=== PATIENT | female | born 1950 | race Caucasian/White ===

== ENCOUNTER 2017-04-29 21:38 | Emergency (ER) | payer MEDICARE, MEDICAID, OTHER ==
[~2017-04-29] VITALS: Ht 172.7 cm; Wt 85.0 kg
[~2017-04-29 21:38] MED LIST: ATOR20TA15 PO; CALC0.25 PO; CLON1 PO; DULO1CAP2 PO; GABA300C5 PO; LEVO100T5 PO; LISI-515 PO
[2017-04-29 21:44] VITALS: BP 139/76; PULSE 51; RESP 16; TEMP 97.7; O2SAT 99
--- NOTE | 2017-04-29 22:17 | PD ---
Physical Exam Time Seen by Provider: 22:16 Narrative 66 y/o female here for evaluation of a cat scratch to the face which occurred when her cat scurried across her while she was taking a nap. Vital signs reviewed. Seen at triage desk. Awaiting bed placement. Data Data Last Documented VS Vital Signs Date Time Temp Pulse Resp B/P Pulse Ox O2 Delivery O2 Flow Rate FiO2 04/29/17 21:44 97.7 51 16 139/76 99 Room Air [facility] Medical Record Reviewed: Yes Supervised Visit with DIONNA: Hayden Foster Apr 29, 2017 22:17
--- NOTE | 2017-04-29 23:53 | PD ---
HPI Chief Complaint: Laceration/Skin Injury Time Seen by Provider: 23:48 Travel History International Travel<30 days: No Contact w/Intl Traveler<30days: No Traveled to known affect area: No History of Present Illness HPI Patient comes in for evaluation scratch to her left forehead that occurred shortly prior to arrival. Patient states that she was sleeping and she thinks her cat was trying to wake her up. She believes when this occurred it had accidentally scratched on her forehead. Patient reports her tetanus shot is not up-to-date. Patient applied a cool compress prior to coming department. Denies doing anything else for this. Denies anything making it better or worse. Denies any pain with this. PFSH Past Medical History Arthritis: Yes Asthma: Yes Depression: Yes Cancer: Yes (THYROID) Cardiovascular Problems: Yes (htn) High Cholesterol: Yes Diabetes: No Diminished Hearing: No Diverticulitis: Yes Endocrine: No Fibromyalgia: Yes Gastrointestinal Disorders: Yes (DUODENAL AND ESOPHAGEAL EROSIONS) GERD: Yes Glaucoma: No Hepatitis: No Hiatal Hernia: No Hypertension: Yes (PVD) Immune Disorder: Yes (FIBROMYALGIA) Medical other: Yes (GERD) Musculoskeletal: Yes (OSTEOPOROSIS) Neurologic: Yes (FIBROMYALGIA) Psychiatric: Yes Respiratory: Yes (ASTHMA) Thyroid Disease: Yes Past Surgical History Abdominal Surgery: Yes (ABDOMINAL HERNIAS) AICD: No Appendectomy: Yes Body Medical Devices: hardware in neck Cholecystectomy: Yes Ear Surgery: No Endocrine Surgery: No Eye Surgery: No Gynecologic Surgery: Yes (OVARY REMOVAL) Hysterectomy: Yes Joint Replacement: No Neurologic Surgery: Yes (CERVICAL FUSION) Pacemaker: No Tonsillectomy: Yes Other Surgery: Yes (left side of body reconstructed) Social History Alcohol Use: No Tobacco Use: No (QUIT 2006) Substance Use: No Allergies-Medications (Allergen,Severity, Reaction): Coded Allergies: Egg Allergy (Verified Allergy, Severe, VOMITING, 04/29/17) Sulfa (Verified Allergy, Severe, SHOCK, 04/29/17) Ibuprofen (Verified Allergy, Mild, Vertigo, 04/29/17) Morphine (Verified Allergy, Mild, SHOCK/STOPS BREATHING, 04/29/17) SULFAMETHOXAZOLE/TRIMETHOPRIM 80-40 (Verified Allergy, Mild, SHOCK, ) Aspirin (Verified Adverse Reaction, Intermediate, bleeding inside, 04/29/17 ) *MDRO Multi-Drug Resistant Organism (Verified Adverse Reaction, Unknown, ) MRSA (wounds) - 2006 MRSA PCR screen negative 12/05/15 & 12/07/15. Pt does not required isolation for a h/o MRSA prior to 12/07/15. Uncoded Allergies: GUMMY VITAMINS (Allergy, Mild, Diarrhea, 07/07/11) Reported Meds & Prescriptions Reported Meds & Active Scripts Active Augmentin (Amoxicillin-Clavulanate) 875-125 Mg Tab 1 Tab PO BID 10 Days Atorvastatin (Atorvastatin Calcium) 20 Mg Tab 20 Mg PO HS Calcitriol 0.25 Mcg Cap 0.25 Mcg PO BID Lisinopril 20 Mg Tab 20 Mg PO BID Klonopin (Clonazepam) 1 Mg Tab 1 Mg PO BID Duloxetine DR (Duloxetine HCl) 30 Mg Capdr 30 Mg PO DAILY Gabapentin 300 Mg Cap 600 Mg PO TID Levothyroxine (Levothyroxine Sodium) 100 Mcg Tab 100 Mcg PO DAILY Review of Systems Except as stated in HPI: all other systems reviewed are Neg Physical Exam Narrative GENERAL: Well-developed, overly nourished, in no acute distress, and non-ill appearing. SKIN: Superficial scratch the left forehead approximately 3 cm in total length. There is no foreign body. No crepitus. No induration. No drainage. Minimally tender. HEAD: Atraumatic. Normocephalic. EYES: Pupils equal and round. EOMI. No scleral icterus. No injection or drainage. ENT: No nasal bleeding or discharge. Mucous membranes pink and moist. NECK: Trachea midline. Supple. No nuclear rigidity. RESPIRATORY: No accessory muscle use. No respiratory distress. MUSCULOSKELETAL: No obvious deformities. No clubbing. No cyanosis. No edema. Full range of motion. NEUROLOGICAL: Awake and alert. No obvious cranial nerve deficits. Motor grossly within normal limits. Normal speech. PSYCHIATRIC: Appropriate mood and affect; insight and judgment normal. Data Data Last Documented VS Vital Signs Date Time Temp Pulse Resp B/P Pulse Ox O2 Delivery O2 Flow Rate FiO2 04/29/17 21:44 97.7 51 16 139/76 99 Room Air Orders Wound Care (04/29/17 23:47) Tetanus/Diphtheria Tox Adult (Tetanus/Di (04/30/17 00:00) MDM Medical Decision Making Medical Screen Exam Complete: Yes Emergency Medical Condition: Yes Differential Diagnosis Laceration, abrasion, scratch, other Narrative Course The patient suffered abrasion. The abrasions are very superficial and nonrepairable. There was no evidence to suggest foreign bodies. Visual and tactile exams were unremarkable. There was no evidence of neurovascular injury as well. The patients wound/s were cleaned and dressed. The patient was given signs and symptom warnings for infection, such as increasing pain, redness, swelling, associated heat, pus or fever. The patient was given instructions for timely follow up. The patient agreed with plan of care. Patient in no obvious distress upon re-evaluation. Patient was asked if they wanted to speak to my attending, which the patient did not wish to do at this time. Any questions/concerns in reference to patient diagnosis/condition discussed and clarified prior to patient's discharge. Reinforced sheer importance of close follow up with patient's primary physician or primary care clinic. Instructed patient to return to ED immediately, if symptoms return/ worsen. Pt showed understanding of above instructions. Further instructions and recommendations were detailed in discharge paperwork. Pt ambulated without difficulty out of ED at discharge. Diagnosis Primary Impression: Cat scratch of face Qualified Code: S00.81XA - Cat scratch of face, initial encounter Patient Instructions: Abrasion (ED), General Instructions Additional Instructions: Follow-up with your primary care physician in 3-5 days for reevaluation. Take all medication as prescribed. Keep wound dry and clean as possible using soap and water. Use Neosporin to promote healing. Do not soak or submerge wound. Return to the emergency department if symptoms get worse. Med/Other Pt SpecificInfo: Prescription(s) given Scripts Amoxicillin-Clavulanate (Augmentin)875-125 Mg Tab1 Tab PO BID 10 Days Ref 0 Prov:Anthony Sommer MD 04/29/17 Disposition: 01 DISCHARGE HOME Condition: Stable Abhijit Resendez Apr 29, 2017 23:53
[2017-04-29] MEDS ORDERED: AUGM875T3 PO (23:59)
[2017-04-30] MEDS ORDERED: TETANUS/DIPHTHERIA TOXOID ADULT 0.5 ML VIAL IM ONE
== END 2017-04-30 00:42 | disposition home or self-care (01) ==
LOC: NEPK 21:38
DX: S00.81XA Abrasion of other part of head, initial encounter (principal); I10 Essential (primary) hypertension; E78.00 Pure hypercholesterolemia, unspecified; K21.9 Gastro-esophageal reflux disease without esophagitis; M79.7 Fibromyalgia; M81.0 Age-related osteoporosis without current pathological fracture; J45.909 Unspecified asthma, uncomplicated; W55.03XA Scratched by cat, initial encounter; Z23 Encounter for immunization
CPT/HCPCS: 90471; 90714; 99283

== ENCOUNTER 2017-09-11 04:47 | Emergency (ER) | payer MEDICARE, MEDICAID ==
[~2017-09-11] VITALS: Ht 175.3 cm; Wt 98.0 kg
[~2017-09-11 04:47] MED LIST changes: +DICL1GEL7 TOPICAL; +MELO7.5T27 PO
[2017-09-11 04:48] VITALS: BP 192/81; PULSE 55; RESP 16; TEMP 99.5; O2SAT 96
[2017-09-11 05:03] VITALS: BP 160/71; PULSE 51; RESP 13; O2SAT 99
[2017-09-11] MEDS ORDERED: PROCHLORPERAZINE INJ 10 MG/2 ML VIAL IV PUSH ONE (05:15)
[2017-09-11] MEDS ORDERED: diphenhydrAMINE HCL 50 MG/ML VIAL IV PUSH ONE (05:15)
[2017-09-11] MEDS ORDERED: SODIUM CHLORIDE 0.9% FLUSH 10 ML FLUSH IVF PRN (05:15)
--- NOTE | 2017-09-11 05:33 | PD ---
HPI . High blood pressure and chest pain Chief Complaint: Hypertension Time Seen by Provider: 05:00 Travel History International Travel<30 days: No Contact w/Intl Traveler<30days: No Traveled to known affect area: No History of Present Illness HPI Patient reports that she got up during the middle the night to get a drink of water. She states that her head was hurting and she was having palpitations that she checked her blood pressure and found it to be high. She subsequently presented here for evaluation and treatment. She has a history of hypertension. Patient also states that she has been having both central and left lateral chest pain for about a week. She has had left arm pain for the last 2-3 weeks. These pains are exacerbated by movement. She states that she has had a headache all day today. She describes an occipital headache that radiates to the bitemporal area. Pain is rated 6/10 and there are no modifying factors. She has not taken anything for the pain prior to arrival. PFSH Past Medical History Arthritis: Yes Asthma: Yes Depression: Yes Cancer: Yes (THYROID) Cardiovascular Problems: Yes (htn) High Cholesterol: Yes Diabetes: No Diminished Hearing: No Diverticulitis: Yes Endocrine: No Fibromyalgia: Yes Gastrointestinal Disorders: Yes (DUODENAL AND ESOPHAGEAL EROSIONS) GERD: Yes Glaucoma: No Hepatitis: No Hiatal Hernia: No Hypertension: Yes (PVD) Immune Disorder: Yes (FIBROMYALGIA) Medical other: Yes (GERD) Musculoskeletal: Yes (OSTEOPOROSIS) Neurologic: Yes (FIBROMYALGIA) Psychiatric: Yes Respiratory: Yes (ASTHMA) Immunizations Current: Yes Thyroid Disease: Yes Past Surgical History Abdominal Surgery: Yes (ABDOMINAL HERNIAS) AICD: No Appendectomy: Yes Body Medical Devices: hardware in neck Cholecystectomy: Yes Ear Surgery: No Endocrine Surgery: No Eye Surgery: No Gynecologic Surgery: Yes (OVARY REMOVAL) Hysterectomy: Yes Joint Replacement: No Neurologic Surgery: Yes (CERVICAL FUSION) Pacemaker: No Tonsillectomy: Yes Other Surgery: Yes (left side of body reconstructed) Social History Alcohol Use: No Tobacco Use: No (QUIT 2006) Substance Use: No Allergies-Medications (Allergen,Severity, Reaction): Coded Allergies: Sulfa (Sulfonamide Antibiotics) (Unverified Allergy, Severe, SHOCK, ) egg (Unverified Allergy, Severe, VOMITING, 09/11/17) ibuprofen (Unverified Allergy, Mild, Vertigo, 09/11/17) morphine (Unverified Allergy, Mild, SHOCK/STOPS BREATHING, 09/11/17) sulfamethoxazole (Unverified Allergy, Mild, SHOCK, 09/11/17) trimethoprim (Unverified Allergy, Mild, SHOCK, 09/11/17) aspirin (Unverified Adverse Reaction, Intermediate, bleeding inside, ) *MDRO Multi-Drug Resistant Organism (Verified Adverse Reaction, Unknown, 09/11/17) MRSA (wounds) - 2006 MRSA PCR screen negative 12/05/15 & 12/07/15. Pt does not required isolation for a h/o MRSA prior to 12/07/15. Uncoded Allergies: GUMMY VITAMINS (Allergy, Mild, Diarrhea, 07/07/11) Reported Meds & Prescriptions Reported Meds & Active Scripts Active Klonopin (Clonazepam) 1 Mg Tab 1 Mg PO BID Diclofenac Topical 1% Gel 1 Applic TOPICAL QID Atorvastatin (Atorvastatin Calcium) 20 Mg Tab 20 Mg PO HS Calcitriol 0.25 Mcg Cap 0.25 Mcg PO BID Lisinopril 20 Mg Tab 20 Mg PO BID Duloxetine DR (Duloxetine HCl) 30 Mg Capdr 30 Mg PO DAILY Gabapentin 300 Mg Cap 600 Mg PO TID Levothyroxine (Levothyroxine Sodium) 100 Mcg Tab 100 Mcg PO DAILY Review of Systems Except as stated in HPI: all other systems reviewed are Neg General / Constitutional: No: Fever, Chills Eyes: No: Diploplia, Blurred Vision, Photophobia HENT: Positive: Headaches Cardiovascular: Positive: Chest Pain or Discomfort Respiratory: No: Shortness of Breath Gastrointestinal: No: Nausea, Vomiting Musculoskeletal: Positive: Myalgias Physical Exam Narrative GENERAL: Awake and alert and in no distress. SKIN: warm/dry. Good color. HEAD: Normocephalic. Atraumatic. EYES: Pupils equal and round. No scleral icterus. No injection or drainage. ENT: No nasal bleeding or discharge. Mucous membranes pink and moist. NECK: Trachea midline. Full range of motion without pain.. CARDIOVASCULAR: Regular rate and rhythm. Heart sounds are normal. RESPIRATORY: No accessory muscle use. Clear to auscultation. Breath sounds equal bilaterally. Positive chest wall tenderness. GASTROINTESTINAL: Abdomen soft. Nontender. Bowel sounds present. Nondistended. MUSCULOSKELETAL: No obvious deformities. Diffuse left arm tenderness. NEUROLOGICAL: Awake and alert. No obvious cranial nerve deficits. Motor grossly within normal limits. Normal speech. PSYCHIATRIC: Appropriate mood and affect; insight and judgment normal. Data Data Last Documented VS Vital Signs Date Time Temp Pulse Resp B/P (MAP) Pulse Ox O2 Delivery O2 Flow Rate FiO2 09/11/17 05:47 50 16 143/62 (89) Room Air 09/11/17 05:45 99 09/11/17 04:48 99.5 Orders Orders Electrocardiogram (09/11/17 05:07) Basic Metabolic Panel (Bmp) (09/11/17 05:07) Complete Blood Count With Diff (09/11/17 05:07) Troponin I (09/11/17 05:07) Chest, Single Ap (09/11/17 05:07) Ecg Monitoring (09/11/17 05:07) Iv Access Insert/Monitor (09/11/17 05:07) Oximetry (09/11/17 05:07) Sodium Chloride 0.9% Flush (Ns Flush) (09/11/17 05:15) Prochlorperazine Inj (Compazine Inj) (09/11/17 05:15) Diphenhydramine Inj (Benadryl Inj) (09/11/17 05:15) Labs Laboratory Tests Test 09/11/17 05:20 White Blood Count 8.1 TH/MM3 Red Blood Count 4.99 MIL/MM3 Hemoglobin 15.1 GM/DL Hematocrit 43.6 % Mean Corpuscular Volume 87.3 FL Mean Corpuscular Hemoglobin 30.2 PG Mean Corpuscular Hemoglobin Concent 34.5 % Red Cell Distribution Width 14.8 % Platelet Count 209 TH/MM3 Mean Platelet Volume 8.3 FL Neutrophils (%) (Auto) 57.7 % Lymphocytes (%) (Auto) 32.9 % Monocytes (%) (Auto) 6.3 % Eosinophils (%) (Auto) 2.4 % Basophils (%) (Auto) 0.7 % Neutrophils # (Auto) 4.7 TH/MM3 Lymphocytes # (Auto) 2.7 TH/MM3 Monocytes # (Auto) 0.5 TH/MM3 Eosinophils # (Auto) 0.2 TH/MM3 Basophils # (Auto) 0.1 TH/MM3 CBC Comment DIFF FINAL Differential Comment Blood Urea Nitrogen 17 MG/DL Creatinine 0.89 MG/DL Random Glucose 101 MG/DL Calcium Level 8.9 MG/DL Sodium Level 143 MEQ/L Potassium Level 3.8 MEQ/L Chloride Level 109 MEQ/L Carbon Dioxide Level 26.4 MEQ/L Anion Gap 8 MEQ/L Estimat Glomerular Filtration Rate 63 ML/MIN Troponin I LESS THAN 0.02 NG/ML MDM Medical Decision Making Medical Screen Exam Complete: Yes Emergency Medical Condition: Yes Medical Record Reviewed: Yes (medical history is significant for hypertension and hyperlipidemia. She also has fibromyalgia and PTSD. She has a history of thyroid and colon cancer.) Interpretation(s) EKG shows a normal sinus rhythm with no acute ischemic changes. Differential Diagnosis Differential diagnosis of headache includes but is not limited to migraine, muscle contraction headache, brain tumor, brain bleed Narrative Course This patient presents with several complaints. Her chief complaint really is a headache. It started today and is global. Other concerns include chest pain which is been ongoing for a week, left arm pain which has been ongoing for 2 or 3 weeks and palpitations. She is also concerned about her blood pressure. I have ordered Compazine and Benadryl for her headache. A chest pain workup is in progress. However, I do not suspect that I will find anything. She has had this chest pain for a week. Her physical exam is compatible with chest wall pain. CBC & BMP Diagram 09/11/17 05:20 Calcium Level 8.9 Last Impressions Chest X-Ray 09/11/17 0507 Signed Impressions: Service Date/Time: Monday, September 11, 2017 05:29 - CONCLUSION: No acute disease. Yimi Farris MD trop < 0.02 Diagnosis Primary Impression: Headache Qualified Codes: G44.209 - Tension-type headache, unspecified, not intractable Patient Instructions: Acute Headache (DC), General Instructions Disposition: 01 DISCHARGE HOME Condition: Stable Kim Del Valle MD Sep 11, 2017 05:33
--- NOTE | 2017-09-11 05:39 | RADRPT ---
EXAM DATE/TIME: 09/11/2017 05:29 [facility] COMPARISON: No previous studies available for comparison. INDICATIONS : Chest pain and headache MEDICAL HISTORY : Hypercholesterolemia. Hypertension Gastroesophageal reflux disease. Fibromyalgia SURGICAL HISTORY : Appendectomy. Cholecystectomy. Tonsillectomy. Hysterectomy ENCOUNTER: Initial ACUITY: 1 day PAIN SCORE: 8/10 LOCATION: Bilateral chest FINDINGS: Right Mediport catheter is noted and the tip overlies the SVC. There is cardiomegaly. There is no def inite consolidation. Osseous structures are intact. CONCLUSION: No acute disease. Yimi Farris MD on September 11, 2017 at 5:37 Board Certified Radiologist. This report was verified electronically.
[2017-09-11 05:44] LABS: AUTOMATED NEUTROPHIL # 4.7 TH/MM3 (1.8-7.7); BASOPHIL # 0.1 TH/MM3 (0-0.2); BASOPHIL % 0.7 % (0.0-2.0); EOSINOPHIL # 0.2 TH/MM3 (0-0.4); EOSINOPHIL % 2.4 % (0.0-4.0); HEMATOCRIT 43.6 % (35.0-46.0); HEMO FLAGS DIFF FINAL; LYMPH % 32.9 % (9.0-44.0); LYMPHOCYTE # 2.7 TH/MM3 (1.0-4.8); MEAN CELL VOLUME 87.3 FL (80.0-100.0); MEAN CORPUSCULAR HEMOGLOBIN 30.2 PG (27.0-34.0); MEAN CORPUSCULAR HGB CONC 34.5 % (32.0-36.0); MONO % 6.3 % (0.0-8.0); NEUT % 57.7 % (16.0-70.0); PLATELET COUNT 209 TH/MM3 (150-450); RED BLOOD COUNT 4.99 MIL/MM3 (4.00-5.30); RED CELL DISTRIBUTION WIDTH 14.8 % (11.6-17.2); WHITE BLOOD COUNT 8.1 TH/MM3 (4.0-11.0)
[2017-09-11 05:45] VITALS: O2SAT 99
[2017-09-11 05:47] VITALS: BP 143/62; PULSE 50; RESP 16
[2017-09-11 05:56] LABS: ANION GAP 8 MEQ/L (5-15); BICARBONATE 26.4 MEQ/L (21.0-32.0); BLOOD UREA NITROGEN 17 MG/DL (7-18); CHLORIDE 109 MEQ/L (98-107); GLOMERULAR FILTRATION RATE 63 ML/MIN (>89); POTASSIUM 3.8 MEQ/L (3.5-5.1); SODIUM (NA) 143 MEQ/L (136-145)
--- NOTE | 2017-09-11 14:00 | EKG ---
Date Performed: 09/11/2017 Time Performed: 05:34:06 PTAGE: 66 years EKG: SINUS BRADYCARDIA NONSPECIFIC T-WAVE ABNORMALITY BORDERLINE ECG Compared to PREVIOUS TRACING , heart rate is slower and the T-wave changes anteroseptally have improv ed. PREVIOUS TRACIN11/22/2014 15.52 DOCTOR: Branden Schmitz Interpretating Date/Time 09/11/2017 13:59:44
== END 2017-09-11 06:24 | disposition home or self-care (01) ==
LOC: NEPC 04:47
DX: G44.209 Tension-type headache, unspecified, not intractable (principal); M79.602 Pain in left arm; E78.00 Pure hypercholesterolemia, unspecified; I10 Essential (primary) hypertension; Z87.891 Personal history of nicotine dependence
CPT/HCPCS: 71010; 80048; 84484; 85025; 93005; 96374; 96375; 99285; J0780; J1200